=== PATIENT | female | born 1995 | race Two or more races ===

== ENCOUNTER → 2017-09-28 | Outpatient (CLI) | payer OTHER ==
--- NOTE | 2017-09-28 12:07 | RADIOLOGY REPORT (SQ) ---
EXAM DESCRIPTION: U/S ABDOMEN LIMITED W/O DOP COMPLETED DATE/TIME: 09/28/2017 11:46 am REASON FOR STUDY: RUQ PAIN R10.11 RIGHT UPPER QUADRANT PAIN COMPARISON: None. TECHNIQUE: Dynamic and static grayscale images acquired of the abdomen and recorded on PACS. Danyelleo queenei selected color Doppler and spectral images recorded. LIMITATIONS: None. FINDINGS: PANCREAS: No masses. Visualized pancreatic duct normal caliber. LIVER: No masses. Echotexture normal. LIVER VASCULATURE: Normal directional flow of the main portal vein and hepatic veins. GALLBLADDER: Echodensity along the dependent wall of gallbladder consistent with gallstones. The gal lbladder wall is borderline enlarged measuring 3 mm in thickness. No pericholecystic fluid is identi fied. ULTRASOUND-DETECTED LOIVEIRA'S SIGN: Negative. INTRAHEPATIC DUCTS AND COMMON DUCT: CBD and intrahepatic ducts normal caliber. No filling defects. INFERIOR VENA CAVA: Normal flow. AORTA: No aneurysm. RIGHT KIDNEY: 10.7 cm in length. Normal echogenicity. No solid or suspicious masses. No hydronephros is. No calcifications. PERITONEAL AND RIGHT PLEURAL SPACE: No ascites or effusions. OTHER: No other significant finding. IMPRESSION: Gallstones are identified with borderline thickening of the gallbladder wall. The possi bility of cholecystitis cannot be excluded. Other findings as noted above TECHNICAL DOCUMENTATION: JOB ID: [id number] [employer]- All Rights Reserved Reading location - IP/workstation name: [email or web address]
== END ==
LOC: RAD 11:25
PROVIDERS: ATTEND Physician Assistant
DX: R10.11 Right upper quadrant pain (principal); K80.80 Other cholelithiasis without obstruction
CPT/HCPCS: 76705

== ENCOUNTER → 2017-09-29 | Outpatient (CLI) | payer OTHER ==
[2017-09-29 14:11] LABS: ABSOLUTE EOSINOPHILS # (AUTO) 0.1 10^3/uL (0.0-0.6); ABSOLUTE LYMPHOCYTES (AUTO) 2.5 10^3/uL (0.5-4.7); ABSOLUTE MONOCYTES (AUTO) 0.4 10^3/uL (0.1-1.4); ABSOLUTE NEUT (AUTO) 3.6 10^3/uL (1.7-8.2); BASOPHILS % (AUTO) 0.6 % (0-2); EOSINOPHILS % (AUTO) 1.8 % (0-6); HEMATOCRIT 37.3 % (36.0-47.0); HEMOGLOBIN 12.5 g/dL (12.0-15.5); LYMPHOCYTES % (AUTO) 37.8 % (13-45); MEAN CORPUSCULAR HEMOGLOBIN 25.5 pg (27.0-33.4); MEAN CORPUSCULAR HGB CONC 33.5 g/dL (32.0-36.0); MEAN CORPUSCULAR VOLUME 76 fl (80-97); MONOCYTES % (AUTO) 5.4 % (3-13); PLATELET COUNT 316 10^3/uL (150-450); RED BLOOD COUNT 4.89 10^6/uL (3.72-5.28); RED CELL DISTRIBUTION WIDTH 19.7 % (11.5-14.0); SEGMENTED NEUTROPHILS % (AUTO) 54.4 % (42-78); TOTAL CELLS COUNTED % (AUTO) 100 %; WHITE BLOOD COUNT 6.6 10^3/uL (4.0-10.5)
[2017-09-29 14:30] LABS: ALANINE AMINOTRANSFERASE 36 U/L (9-52); ALBUMIN 4.5 g/dL (3.5-5.0); ALKALINE PHOSPHATASE 80 U/L (38-126); ANION GAP 13 (5-19); ASPARTATE AMINO TRANSFERASE 23 U/L (14-36); BILIRUBIN,DIRECT 0.3 mg/dL (0.0-0.4); BILIRUBIN,TOTAL 0.7 mg/dL (0.2-1.3); BLOOD UREA NITROGEN 9 mg/dL (7-20); CALCIUM 9.8 mg/dL (8.4-10.2); CARBON DIOXIDE 27 mmol/L (22-30); CHLORIDE 104 mmol/L (98-107); GLUCOSE 73 mg/dL (75-110); LIPASE 44.6 U/L (23-300); POTASSIUM 4.3 mmol/L (3.6-5.0); SODIUM 144.2 mmol/L (137-145); TOTAL PROTEIN 7.3 g/dL (6.3-8.2)
== END ==
LOC: OD 13:06
PROVIDERS: ATTEND Physician Assistant
DX: K80.20 Calculus of gallbladder without cholecystitis without obstruction (principal); R10.11 Right upper quadrant pain
CPT/HCPCS: 36415; 80053; 83690; 85025

== ENCOUNTER 2017-10-27 07:52 | Emergency (ER) | payer OTHER ==
--- NOTE | 2017-10-27 08:17 | ER Document Report ---
ED General - General Chief Complaint: Abdominal Pain Stated Complaint: ABDOMINAL PAIN Time Seen by Provider: 10/27/17 08:16 TRAVEL OUTSIDE OF THE [place] IN LAST 30 DAYS: No - HPI Patient complains to provider of: abdominal pain Notes: 12/06 diffuse abdominal pain sharp in nature without radiation nothing is made it better or worse has been associated with nausea and 3 episodes of emesis. Patient had her gallbladder removed earlier this week at . Was discharged after a bowel movement continues to have pain. Was seen yesterday at [facility] emergency department had extensive lab workup and imaging studies sent home again. Patient continues to have exquisite pain unable to tolerate oral intake. Has fever chills cough or dysuria. Had a bowel movement yesterday evening. - Related Data Allergies/Adverse Reactions: amoxicillin Allergy (Verified 10/27/17 07:57) Penicillins Allergy (Verified 10/27/17 07:57) Past Medical History - Social History Smoking Status: Unknown if Ever Smoked Family History: None Review of Systems - Review of Systems Notes: REVIEW OF SYSTEMS: CONSTITUTIONAL: -fevers, -chills EENT: -eye pain, -difficulty swallowing, -nasal congestion CARDIOVASCULAR: -chest pain, -syncope. RESPIRATORY: -cough, -SOB GASTROINTESTINAL: +abdominal pain, +nausea, +vomiting, -diarrhea GENITOURINARY: -dysuria, -hematuria MUSCULOSKELETAL: -back pain, -neck pain SKIN: -rash or skin lesions. HEMATOLOGIC: -easy bruising or bleeding. LYMPHATIC: -swollen, enlarged glands. NEUROLOGICAL: -altered mental status or loss of consciousness, -headache, - neurologic symptoms PSYCHIATRIC: -anxiety, -depression. ALL OTHER SYSTEMS REVIEWED AND NEGATIVE. Physical Exam - Vital signs Vitals: Temp Pulse Resp BP Pulse Ox 98.2 F 95 18 127/79 H 98 10/27/17 08:01 10/27/17 08:01 10/27/17 08:01 10/27/17 08:01 10/27/17 08:01 - Notes Notes: PHYSICAL EXAMINATION: GENERAL: Well-appearing, well-nourished and in severe acute distress. HEAD: Atraumatic, normocephalic. EYES: Pupils equal round and reactive to light, extraocular movements intact, sclera anicteric, conjunctiva are normal. ENT: nares patent, oropharynx clear without exudates. Moist mucous membranes. NECK: Normal range of motion, supple without lymphadenopathy LUNGS: Breath sounds clear to auscultation bilaterally and equal. No wheezes rales or rhonchi. HEART: Regular rate and rhythm without murmurs ABDOMEN: Soft, quizzically tender to palpation. Normal bowel sounds EXTREMITIES: Normal range of motion, no pitting or edema. No cyanosis. NEUROLOGICAL: Cranial nerves grossly intact. Normal speech, normal gait. Normal sensory and motor exams. PSYCH: Normal mood, normal affect. SKIN: Warm, Dry, normal turgor, no rashes or lesions noted. Course - Re-evaluation Re-evalutation: 10/27/17 14:06 Pleasant young female presents with significant abdominal pain status post cholecystectomy 2 days ago. Extensive lab workup relatively unremarkable CAT scan shows fluid in her right gutters. HIDA scan findings cystic duct bile leak. Patient will be transferred to [facility] for ERCP and definitive management. - Vital Signs Vital signs: Temp Pulse Resp BP Pulse Ox 98.9 F 86 16 123/77 98 10/27/17 13:27 10/27/17 13:27 10/27/17 13:27 10/27/17 13:27 10/27/17 13:27 - Laboratory Result Diagrams: 10/27/17 10:20 10/27/17 08:52 Laboratory results interpreted by me: 10/27/17 10/27/17 10/27/17 08:52 10:14 10:20 MCH 26.9 L RDW 19.3 H Seg Neutrophils % 82.1 H Lymphocytes % 12.5 L AST 91 H ALT 331 H Alkaline Phosphatase 138 H Urine Blood SMALL H Discharge - Discharge Clinical Impression: Bile leak, postoperative Condition: Stable Disposition: [facility] Unit Admitted: Medical Floor Referrals: LAM MEDEL PA [Primary Care Provider] - Follow up as needed
[2017-10-27] MEDS ORDERED: NORMAL SALINE 1000 ML 1,000 ML IV ONE ×2 (08:18→08:24)
[2017-10-27] MEDS ORDERED: MORPHINE SULFATE 10 MG/ML INJ IV ONE ×2 (08:25→14:48)
[2017-10-27] MEDS ORDERED: PROMETHAZINE HCL INJ 25 MG/1 ML VIAL IV ONE (08:28)
[2017-10-27 09:33] LABS: ALANINE AMINOTRANSFERASE 331 U/L (9-52); ALBUMIN 4.4 g/dL (3.5-5.0); ALKALINE PHOSPHATASE 138 U/L (38-126); ANION GAP 13 (5-19); ASPARTATE AMINO TRANSFERASE 91 U/L (14-36); BILIRUBIN,DIRECT 0.3 mg/dL (0.0-0.4); BILIRUBIN,TOTAL 0.8 mg/dL (0.2-1.3); BLOOD UREA NITROGEN 9 mg/dL (7-20); CALCIUM 9.5 mg/dL (8.4-10.2); CARBON DIOXIDE 26 mmol/L (22-30); CHLORIDE 105 mmol/L (98-107); GLUCOSE 91 mg/dL (75-110); LIPASE 30.6 U/L (23-300); POTASSIUM 4.2 mmol/L (3.6-5.0); SODIUM 144.1 mmol/L (137-145)
--- NOTE | 2017-10-27 09:59 | RADIOLOGY REPORT (SQ) ---
EXAM DESCRIPTION: CT ABD/PELVIS WITH IV ONLY COMPLETED DATE/TIME: 10/27/2017 9:42 am REASON FOR STUDY: post maddie pain post cholecystectomy 10/23/2017, abdominal pain without fever COMPARISON: Right upper quadrant ultrasound 09/28/2017 TECHNIQUE: CT scan of the abdomen and pelvis performed using helical scanning technique with dynamic intravenous contrast injection. No oral contrast. Images reviewed with lung, soft tissue, and bone windows. Reconstructed coronal and sagittal MPR images reviewed. Delayed images for evaluation of the urinary system also acquired. All images stored on PACS. All CT scanners at this facility use dose modulation, iterative reconstruction, and/or weight based d osing when appropriate to reduce radiation dose to as low as reasonably achievable (ALARA). [facility]: Dose Right [facility]: CareDose [facility]: Dose Right [facility]: Teradose 4D [facility]: [employer] CONTRAST TYPE AND DOSE: contrast/concentration: Isovue 350.00 mg/ml; Total Contrast Delivered: 80.0 ml; Total Saline Delivered: 53.9 ml RENAL FUNCTION: Creatinine 0.64 RADIATION DOSE: CT Rad equipment meets quality standard of care and radiation dose reduction techniq ues were employed. CTDIvol: 7.6 - 10.7 mGy. DLP: 1023 mGy-cm.. LIMITATIONS: None. FINDINGS: LOWER CHEST: No significant findings. No nodules or infiltrates. LIVER: Normal size. No masses. No dilated ducts. SPLEEN: Normal size. No focal lesions. PANCREAS: No masses. No significant calcifications. No adjacent inflammation or peripancreatic fluid collections. Pancreatic duct not dilated. GALLBLADDER: Surgically absent. There is a small amount of fluid in the gallbladder fossa. Moderate amount of fluid tracking down into the right lower quadrant pericolic gutter and into the pelvic cul -de-sac. Bile leak could not be excluded. Findings discussed with Dr. Tellez in the emergency room. ADRENAL GLANDS: No significant masses or asymmetry. RIGHT KIDNEY AND URETER: No solid masses. No significant calcifications. No hydronephrosis or hyd roureter. LEFT KIDNEY AND URETER: No solid masses. No significant calcifications. No hydronephrosis or hydr oureter. AORTA AND VESSELS: No aneurysm. No dissection. Renal arteries, SMA, celiac without stenosis. RETROPERITONEUM: No retroperitoneal adenopathy, hemorrhage or masses. BOWEL AND PERITONEAL CAVITY: There is moderate amount of fluid in the right pericolic gutter, right l ower quadrant and pelvic cul-de-sac. Bile leak could not be excluded. No free intraperitoneal air. Nonobstructive bowel gas pattern with moderate stool in the colon. APPENDIX: Not identified PELVIS: Cul-de-sac free fluid. Normal size female pelvic organs. ABDOMINAL WALL: No masses. No hernias. BONES: No significant or acute findings. OTHER: No other significant finding. IMPRESSION: Post cholecystectomy with trace amount of fluid in the right upper quadrant and small to moderate amount of fluid in the right lower quadrant and pelvic cul-de-sac. This finding is nonspec ific, but could indicate a bile leak. Findings discussed with the emergency room attending physician TECHNICAL DOCUMENTATION: JOB ID: [id number] Quality ID # [id number]: Final reports with documentation of one or more dose reduction techniques (e.g., Au tomated exposure control, adjustment of the mA and/or kV according to patient size, use of iterative reconstruction technique) 2010 [employer]- All Rights Reserved Reading location - IP/workstation name: [email or web address]
[2017-10-27 10:36] LABS: APPEARANCE,URINE CLEAR; BILIRUBIN,URINE NEGATIVE (NEGATIVE); COLOR,URINE STRAW; GLUCOSE, URINE NEGATIVE (NEGATIVE); KETONES,URINE NEGATIVE (NEGATIVE); LEUKOCYTE ESTERASE,URINE NEGATIVE (NEGATIVE); NITRITE,URINE NEGATIVE (NEGATIVE); PROTEIN,URINE NEGATIVE (NEGATIVE); URINE SPECIFIC GRAVITY 1.016; UROBILINOGEN,URINE NEGATIVE mg/dL (<2.0)
[2017-10-27 10:37] LABS: ABSOLUTE EOSINOPHILS # (AUTO) 0.1 10^3/uL (0.0-0.6); ABSOLUTE LYMPHOCYTES (AUTO) 1.1 10^3/uL (0.5-4.7); ABSOLUTE MONOCYTES (AUTO) 0.4 10^3/uL (0.1-1.4); ABSOLUTE NEUT (AUTO) 7.4 10^3/uL (1.7-8.2); BASOPHILS % (AUTO) 0.1 % (0-2); EOSINOPHILS % (AUTO) 0.7 % (0-6); HEMATOCRIT 39.1 % (36.0-47.0); LYMPHOCYTES % (AUTO) 12.5 % (13-45); MEAN CORPUSCULAR HEMOGLOBIN 26.9 pg (27.0-33.4); MEAN CORPUSCULAR HGB CONC 33.3 g/dL (32.0-36.0); MONOCYTES % (AUTO) 4.6 % (3-13); PLATELET COUNT 353 10^3/uL (150-450); RED BLOOD COUNT 4.84 10^6/uL (3.72-5.28); RED CELL DISTRIBUTION WIDTH 19.3 % (11.5-14.0); SEGMENTED NEUTROPHILS % (AUTO) 82.1 % (42-78); TOTAL CELLS COUNTED % (AUTO) 100 %
[2017-10-27 10:39] LABS: MEAN CORPUSCULAR VOLUME 81 fl (80-97)
--- NOTE | 2017-10-27 12:57 | RADIOLOGY REPORT (SQ) ---
EXAM DESCRIPTION: NM HIDA SCAN COMPLETED DATE/TIME: 10/27/2017 12:09 pm REASON FOR STUDY: leak post op COMPARISON: CT abdomen pelvis 10/27/2017 RADIONUCLIDE AND DOSE: DOSAGE RADIONUCLIDE: 5.5 millicuries Tc99m Mebrofenin. DOSAGE MORPHINE: Not required. The route of agent administration: Intravenous TECHNIQUE: Serial imaging right upper quadrant up to 60 minutes following injection of radionuclide. Patient imaged AP and Right Lateral. LIMITATIONS: None. FINDINGS: Prompt homogeneous uptake throughout the liver which clears by 60 minutes. Common bile duct, duodenum visualized by 12 minutes. The 10 minutes image demonstrates leakage of activity into the right upper quadrant and down the righ t pericolic gutter. This indicates a bile leak. This report was called to the emergency room Dr Nitza vickers IMPRESSION: Right upper quadrant bile leak. TECHNICAL DOCUMENTATION: JOB ID: [id number] [employer]- All Rights Reserved Reading location - IP/workstation name: [email or web address]
[2017-10-27 14:44] VITALS: BP 117/85
[2017-10-27] MEDS ORDERED: ONDANSETRON HCL INJ/PF 4 MG/2 ML SDV IV ONE (14:48)
== END 2017-10-27 15:08 | disposition short-term general hospital (02) ==
LOC: ER 07:52
DX: K91.89 Other postprocedural complications and disorders of digestive system (principal); R10.9 Unspecified abdominal pain; R11.2 Nausea with vomiting, unspecified
CPT/HCPCS: 96376; 99285; 96361; 96374; 96375; 36415; 83605; 83690; 85025; 80053; 81001; 78226; 74177; A9537; J2270; J2550; J2405; J7030

== ENCOUNTER 2018-04-01 22:30 | Emergency (ER) | payer OTHER ==
[2018-04-01] MEDS ORDERED: ONDANSETRON HCL INJ/PF 4 MG/2 ML SDV IV ONE (23:24)
[2018-04-01] MEDS ORDERED: NORMAL SALINE 1000 ML 1,000 ML IV ONE (23:24)
--- NOTE | 2018-04-01 23:24 | ER Document Report ---
ED General - General Chief Complaint: Fever Stated Complaint: COUGH Time Seen by Provider: 04/01/18 23:15 Primary Care Provider: LAM MEDEL PA [Primary Care Provider] - Follow up as needed Notes: Patient is a 22-year-old female who presents emergency department with a chief complaint of a fever and a cough. She has had these symptoms for the past 3 days. She took some Tylenol at home to help with her fever and her last dose was at 1500 today. Also has had some associated nausea, vomiting, and diarrhea. Her past surgical history includes a cholecystectomy. TRAVEL OUTSIDE OF THE [place] IN LAST 30 DAYS: No - Related Data Allergies/Adverse Reactions: amoxicillin Allergy (Verified 04/02/18 00:34) Penicillins Allergy (Verified 04/02/18 00:34) Past Medical History - Social History Smoking Status: Never Smoker Chew tobacco use (# tins/day): No Frequency of alcohol use: Occasional Drug Abuse: Marijuana Family History: None Patient has suicidal ideation: No Patient has homicidal ideation: No Renal/ Medical History: Denies: Hx Peritoneal Dialysis Past Surgical History: Reports: Hx Cholecystectomy - 10/23/17, Hx Tonsillectomy Review of Systems - Review of Systems Notes: REVIEW OF SYSTEMS: CONSTITUTIONAL : Denies recent illness. Denies recent unintentional weight loss. Denies fever, chills, or sweats. EENT: See HPI. CARDIOVASCULAR: Denies chest pain. RESPIRATORY: See HPI. GASTROINTESTINAL: Denies nausea, vomiting, and diarrhea. Denies abdominal pain. Denies constipation. GENITOURINARY: Denies difficulty urinating, burning, blood in urine, urgency or frequency. MUSCULOSKELETAL: Denies neck and back pain. Denies joint pain or swelling. SKIN: Denies rash, itchiness, or lesions HEMATOLOGIC : Denies easy bruising or bleeding. LYMPHATIC: Denies swollen, painful, enlarged glands. NEUROLOGICAL: Denies no numbness or tingling denies weakness. Denies headache. Denies altered mental status. Denies alteration in speech. PSYCHIATRIC: Denies stress, anxiety, alteration in sleep patterns, or depression. All other systems reviewed and negative. Physical Exam - Vital signs Vitals: Temp Pulse Resp BP Pulse Ox 100.3 F 160 H 18 119/68 97 04/01/18 23:00 04/01/18 23:00 04/01/18 23:00 04/01/18 23:00 04/01/18 23:00 - Notes Notes: PHYSICAL EXAMINATION: GENERAL: Appears ill, healthy, well-nourished, no acute distress. HEAD: Normocephalic, atraumatic. EYES: PERRL, conjunctiva normal, all extraocular movements intact, sclera nonicteric ENT: Moist mucous membranes. Rhinorrhea noted. NECK: Supple, no noticeable swelling, redness, rash. Normal range of motion. LUNGS: Equal breath sounds bilaterally and clear to auscultation. No wheezes rales or rhonchi. CARDIOVASCULAR: S1-S2, tachycardia, regular rhythm. Radial pulses 2+, normal. ABDOMEN: Normoactive bowel sounds. Soft, nontender, no guarding, no rebound tenderness, and no masses palpated. EXTREMITIES: Normal strength and range of motion, no pitting or edema. No cyanosis. NEUROLOGICAL: Moves all extremities upon command. Strength 5/5 in all extremities. PSYCH: Normal mood, normal affect. SKIN: Warm, dry. No rash, lesions, ulcerations noted. Normal skin turgor. Course - Re-evaluation Re-evalutation: 04/02/18 00:43 Patient's influenza screen is positive for flu A. I have discussed with the patient the treatment for influenza is rest, fluids, and control. She verbalized understanding. Due to the length of the patient's symptoms, I do not suspect patient has pneumonia. Chest x-ray is not indicated at this time. 04/02/18 00:57 You have been informed by the nurse that patient is vomiting again. She will be given another dose of Zofran. She has had 1 L of fluids and her heart rate has decreased to the 110s from the 130s. We will wait for her heart rate to decrease before she is discharged home. 04/02/18 01:32 Patient's heart rate has come down to 104. I have ordered her Zofran and have instructed her to slowly introduce fluids and take her Zofran as needed for nausea and vomiting. Verbal discharge instructions were given to the patient. They verbalized understanding. They are stable for discharge. - Vital Signs Vital signs: Temp Pulse Resp BP Pulse Ox 98.0 F 160 H 19 99/60 L 96 04/02/18 01:50 04/01/18 23:00 04/02/18 01:35 02/04/19 01:01 04/02/18 01:35 - EKG Interpretation by Me Additional EKG results interpreted by me: 04/01/18 23:20 Sinus tachycardia. Heart rate 135. WA 124; QRS 70; QT 280; QTC 420. No ST elevations or depressions. Discharge - Discharge Clinical Impression: Cough, Influenza A Fever Qualifiers: Fever type: unspecified Qualified Code(s): R50.9 - Fever, unspecified Condition: Stable Disposition: HOME, SELF-CARE Instructions: Fever ([facility]) Additional Instructions: You were seen today in the emergency department for a fever and a cough. You have the flu. The flu can last up to 7-10 days. You may take Tylenol 1000 mg every 6 hours as needed for any fever. Please be sure to rest and drink plenty of fluid. You have been given Zofran, medication for nausea and vomiting. You may take 1 tablet every 4-6 hours as needed for nausea and vomiting. If your fevers not controlled by Motrin and Tylenol, you continue to vomit while on Zofran, or have any symptoms that are worrisome to you, please return to the emergency department. Referrals: LAM MEDEL PA [Primary Care Provider] - Follow up as needed
[2018-04-01] MEDS ORDERED: ACETAMINOPHEN 325 MG TABLET PO ONE (23:33)
[2018-04-02 00:21] LABS: A TYPE INFLUENZA AG POSITIVE (NEGATIVE); B INFLUENZA AG NEGATIVE (NEGATIVE)
[2018-04-02] MEDS ORDERED: IBUPROFEN 600 MG TABLET PO ONE (00:21)
[2018-04-02] MEDS ORDERED: ONDANSETRON HCL INJ/PF 4 MG/2 ML SDV IV ONE (00:58)
[2018-04-02] MEDS ORDERED: ONDANSETRON ODT 4 MG TAB (6 TAB/ER DISP) PO PRN (01:30)
[2018-04-02 01:36] VITALS: BP 99/60
--- NOTE | 2018-04-02 06:11 | EKG REPORT ---
SEVERITY:- BORDERLINE ECG - SINUS TACHYCARDIA BORDERLINE T ABNORMALITIES, INFERIOR LEADS : Confirmed by: Landen Reid MD 02-Apr-2018 06:11:13
== END 2018-04-02 01:50 | disposition home or self-care (01) ==
LOC: ER 22:30
DX: J11.1 Influenza due to unidentified influenza virus with other respiratory manifestations (principal); R50.9 Fever, unspecified; Z88.0 Allergy status to penicillin; Z90.49 Acquired absence of other specified parts of digestive tract; R05 Cough
CPT/HCPCS: 93005; 96376; 99283; 96374; 81025; 87804; 93010; J2405 ×2; J7030